=== PATIENT | female | born 1945 | race Caucasian/White ===

== ENCOUNTER → 2021-11-28 | Day surgery (SDC) | payer MEDICARE, OTHER ==
[~2021-11-28] VITALS: Ht 162.6 cm; Wt 102.1 kg
[~2021-11-28] MED LIST: ALDACTONE100 MG PO; ALLEGRA ALLERG180 MG PO; ASCORBIC ACID500 MG PO; ASPIRIN EC81 MG PO; DUPIXENT P200 MG/1.1 IM; HCTZ25 MG PO; HUMULIN N100 UNIT/1 SC; HUMULIN R100 UNIT/1 SC; LEVOTHYROXINE112 MCG PO; LEXAPRO20 MG PO; LOSARTAN-HCTZ1 EAC1 PO; LOVAZA1 GM PO; METOPROLOL SUCC50 MG PO; MOBIC7.5 M1 PO; NORCO 5-325 TA1 EACH PO; NORVASC5 MG PO; NPLATE125 MCG IM; PRAVACHOL20 MG PO; PROBIOTIC1 EAC6 PO; ROSUVASTATIN CA40 MG PO; SYNTHROID 0.1M0.1 MG PO; SYNTHROID112 MCG PO; TOPROL XL 50 MG50 MG PO; TRAZODONE HCL50 MG PO; VALSARTAN-HCTZ1 EAC3 PO; VITAMIN B-121000 MC1 PO; VITAMIN D32000 UNIT PO; VITAMIN E180 M2 PO; ZYRTEC10 M3 PO; [UNRECOGNIZED DRUG - REMARK] PO
[2021-11-28 09:40] LABS: HCT 41.9 % (37.0-47.0); HGB 13.5 g/dl (12.5-16.0); MCH 27.6 pg (25.0-31.0); MCHC 32.2 g/dL (32.0-36.0); MCV 85.5 fL (78.0-100.0); MPV 12.5 fL (6.0-9.5); RBC 4.9 M/uL (4.20-5.40); RDW 12.3 % (11.5-14.0); WBC 5.4 K/uL (4.0-10.5)
[2021-11-28 10:52] LABS: ALBUMIN 3.4 g/dL (3.4-5.0); BILIRUBIN - TOTAL 0.8 mg/dL (0.2-1.0); BUN/CREAT RATIO (CALC) 25.4 RATIO; CREATININE 1.3 mg/dL (0.51-0.95); GLOBULIN (CALCULATION) 3.9 g/dL; TOTAL PROTEIN 7.3 g/dL (6.4-8.2)
== END | disposition home or self-care (01) ==
LOC: FAS 08:44
PROVIDERS: Surgery
DX: C34.12 Malignant neoplasm of upper lobe, left bronchus or lung (principal); E78.5 Hyperlipidemia, unspecified; I10 Essential (primary) hypertension; E11.9 Type 2 diabetes mellitus without complications; Z87.891 Personal history of nicotine dependence
CPT/HCPCS: 36415; 71045; 76000; 80053; 93005; C1788; J0690; J1644; J2405; J2704; J3010; J7120